=== PATIENT | male | born 1945 | race Caucasian/White ===

== ENCOUNTER → 2018-01-24 | Outpatient (CLI) | payer MEDICARE, BC ==
[~2018-01-24] MED LIST: CARDURA4 MG PO; COMBIVENT INH14.7 GM IH; CRESTOR; FLOVENT0.044 MG/A IH; LIPITOR 40MG TA40 MG PO; LISINOPRIL/HCTZ1 TAB PO; PERCOCET 325 MG1 TA2 PO; PROAIR HFA0.09 MG/AC IH; QVAR REDIHALE10.6 G1 IH; VENTOLIN0.09 MG; VENTOLIN0.09 MG IH; ZESTORETIC 12.51 TA1 PO
== END ==
LOC: ZCOL.LAB 10:34
DX: R91.8 Other nonspecific abnormal finding of lung field (principal)

== ENCOUNTER → 2018-01-30 | Outpatient (CLI) | payer MEDICARE, BC ==
[2018-01-30] VITALS (17 sets, daily range): BP systolic 113–159; BP diastolic 56–95; PULSE 75–113
[~2018-01-30] VITALS: Ht 188 cm; Wt 96.4 kg
== END ==
LOC: COL.RAD 10:09
DX: R91.8 Other nonspecific abnormal finding of lung field (principal); R16.0 Hepatomegaly, not elsewhere classified
CPT/HCPCS: Q9967

== ENCOUNTER → 2018-06-11 | Outpatient (CLI) | payer MEDICARE, BC | LOC: COL.RAD 06:45 | DX: C18.9 Malignant neoplasm of colon, unspecified (principal); C78.00 Secondary malignant neoplasm of unspecified lung; R16.0 Hepatomegaly, not elsewhere classified | CPT/HCPCS: Q9967 ==

== ENCOUNTER → 2018-08-06 | Outpatient (CLI) | payer MEDICARE, BC | LOC: COL.RAD 08:03 | DX: C18.9 Malignant neoplasm of colon, unspecified (principal); C78.02 Secondary malignant neoplasm of left lung; C78.01 Secondary malignant neoplasm of right lung; R16.0 Hepatomegaly, not elsewhere classified; Z95.828 Presence of other vascular implants and grafts | CPT/HCPCS: Q9967 ==

== ENCOUNTER → 2018-10-09 | Outpatient (CLI) | payer MEDICARE, BC | LOC: COL.RAD 07:45 | DX: C18.9 Malignant neoplasm of colon, unspecified (principal); E11.9 Type 2 diabetes mellitus without complications; C78.01 Secondary malignant neoplasm of right lung; C78.02 Secondary malignant neoplasm of left lung; C78.7 Secondary malignant neoplasm of liver and intrahepatic bile duct | CPT/HCPCS: Q9967 ==

== ENCOUNTER → 2018-11-15 | Outpatient (CLI) | payer MEDICARE, BC | LOC: COL.RAD 09:50 | DX: C18.9 Malignant neoplasm of colon, unspecified (principal); E11.9 Type 2 diabetes mellitus without complications; R91.8 Other nonspecific abnormal finding of lung field; R16.0 Hepatomegaly, not elsewhere classified | CPT/HCPCS: Q9967 ==

== ENCOUNTER → 2019-02-11 | Outpatient (CLI) | payer MEDICARE, BC | LOC: COL.RAD 07:23 | DX: Z01.812 Encounter for preprocedural laboratory examination (principal); C19 Malignant neoplasm of rectosigmoid junction; C21.8 Malignant neoplasm of overlapping sites of rectum, anus and anal canal; R91.8 Other nonspecific abnormal finding of lung field; K82.8 Other specified diseases of gallbladder; R16.1 Splenomegaly, not elsewhere classified | CPT/HCPCS: Q9967 ==

== ENCOUNTER → 2019-05-21 | Outpatient (CLI) | payer MEDICARE, BC | LOC: COL.RAD 07:28 | DX: C78.00 Secondary malignant neoplasm of unspecified lung (principal); C18.9 Malignant neoplasm of colon, unspecified | CPT/HCPCS: Q9967 ==

== ENCOUNTER 2019-08-08 00:25 | Emergency (ER) | payer MEDICARE, BC ==
[2019-08-08 00:25] VITALS: TEMP 98.9
[2019-08-08] MEDS ORDERED: OXYCODONE H5 MG/5 ML PO (00:35)
[2019-08-08] MEDS ORDERED: LASIX 40MG TABL40 MG PO (00:35)
[2019-08-08] MEDS ORDERED: KLOR-CON20 MEQ PO (00:36)
[2019-08-08 00:59] LABS: BASO % 0.7 % (0.0-2.0); EOS % 1.3 % (0-4.0); GRAN # 2.2 (1.4-6.5); LYMPH # 0.6 (1.2-3.4); LYMPH % 19.3 % (20.0-51.0); MEAN CELL VOLUME 110 fl (80.0-100.0); MEAN CORPUSCULAR HGB CONC 32 g/dl (33.0-37.0); MEAN PLATELET VOLUME 11.2 fl (7.4-10.4); MONO # 0.1 (0.1-0.6); PLATELET COUNT 64 K/mm3 (130-400); RED BLOOD COUNT 2.33 M/mm3 (4.20-5.60); REDCELL DISTRIBUTION WIDTH-CV 17.7 % (11.5-14.5)
[2019-08-08 01:01] LABS: ALBUMIN 3.2 gm/dL (3.5-5.0); BILIRUBIN,TOTAL 1.8 mg/dL (0.0-1.0); CALCIUM 8.7 mg/dL (8.4-10.2); CREATININE, serum 0.96 (0.66-1.25); TOTAL PROTEIN 5.9 gm/dL (6.4-8.2)
[2019-08-08 01:03] LABS: HEMATOCRIT 25.6 % (42.0-52.0); HEMOGLOBIN 8.3 g/dl (13.5-18.0); MEAN CORPUSCULAR HEMOGLOBIN 36 pg (27.0-31.0)
[2019-08-08] MEDS ORDERED: ANUSOL-HC SUPPO25 MG RC (03:40)
[2019-08-08 04:08] VITALS: BP 152/80; PULSE 90
== END 2019-08-08 04:11 | disposition home or self-care (01) ==
LOC: COL.ER 00:25
PROVIDERS: Emergency Medicine
DX: K59.00 Constipation, unspecified (principal); R60.9 Edema, unspecified; C18.9 Malignant neoplasm of colon, unspecified; C78.00 Secondary malignant neoplasm of unspecified lung; C78.7 Secondary malignant neoplasm of liver and intrahepatic bile duct; I10 Essential (primary) hypertension
CPT/HCPCS: J1940; J7030; Q9967

== ENCOUNTER 2019-09-06 15:39 | Inpatient (IN) | payer MEDICARE, BC ==
[~2019-09-06] VITALS: Ht 188 cm; Wt 103.2 kg
[~2019-09-06 15:39] MED LIST changes: +ANUSOL-HC SUPPO25 MG RC; +KLOR-CON20 MEQ PO; +LASIX 40MG TABL40 MG PO; +OXYCODONE H5 MG/5 ML PO
[2019-09-06 16:51] LABS: MEAN CELL VOLUME 112 fl (80.0-100.0); MEAN CORPUSCULAR HGB CONC 31 g/dl (33.0-37.0); MEAN PLATELET VOLUME 10.5 fl (7.4-10.4); PLATELET COUNT 93 K/mm3 (130-400); REDCELL DISTRIBUTION WIDTH-CV 18.6 % (11.5-14.5)
[2019-09-06 16:56] LABS: INR 1.3 (0.8-3.0)
[2019-09-06 16:59] LABS: HEMOGLOBIN 8.7 g/dl (13.5-18.0); MEAN CORPUSCULAR HEMOGLOBIN 35 pg (27.0-31.0)
[2019-09-06 17:04] LABS: EOS % 0.7 % (0-4.0); GRAN # 4.6 (1.4-6.5); GRAN % 84.4 % (42.2-75.2); LYMPH # 0.7 (1.2-3.4); MONO # 0.1 (0.1-0.6); MONO % 1.5 % (1.7-9.3)
[2019-09-06 17:05] LABS: ALANINE AMINOTRANSFERASE 26 U/L (4-49); ALBUMIN 2.7 gm/dL (3.5-5.0); ALKALINE PHOSPHATASE 126 U/L (50-136); ANION GAP 6 mmol/L (7-16); AST,SGOT 56 U/L (15-37); BLOOD UREA NITROGEN 47 mg/dL (9-20); C-REACTIVE PROTEIN 2.3 mg/dL (0.0-0.9); CALCIUM 8.6 mg/dL (8.4-10.2); CARBON DIOXIDE 28 mmol/L (22-30); CHLORIDE 99 mmol/L (98-107); CREATININE, serum 0.94 (0.66-1.25); GLUCOSE 83 mg/dL (74-106); LIPASE 39 U/L (23-300); POTASSIUM 4.3 mmol/L (3.4-5.0); SODIUM 134 mmol/L (137-145); TOTAL PROTEIN 5.3 gm/dL (6.4-8.2)
[2019-09-06 17:08] LABS: COLLECTION METHOD CLEAN CATCH
[2019-09-06 17:14] LABS: MUCOUS Present /lpf; PH 6 (5-8); SQUAMOUS EPITHELIAL None Seen /hpf; URINE APPEARANCE Clear; URINE BACTERIA None Seen /hpf; URINE BILIRUBIN Negative (NEGATIVE); URINE BLOOD Negative (NEGATIVE); URINE COLOR Yellow; URINE GLUCOSE Negative (NEGATIVE); URINE KETONE Negative (NEGATIVE); URINE LEUKOCYTE ESTERASE Negative (NEGATIVE); URINE NITRATE Negative (NEGATIVE); URINE PROTEIN(semi-quant) Negative (NEGATIVE); URINE RBC 0-2 /hpf; URINE UROBILINOGEN Negative (NEGATIVE)
[2019-09-06 17:14] LABS: TROPONIN-I < 0.012 ng/mL (0.000-0.035)
[2019-09-06 19:09] VITALS: BP 127/58; PULSE 86; TEMP 97.9
[2019-09-06] MEDS ORDERED: K-TAB10 PO (19:16)
[2019-09-06 20:00] VITALS: BP 103/53; PULSE 79; TEMP 97.9
[2019-09-06 22:20] LABS: HEMATOCRIT 25.4 % (42.0-52.0); HEMOGLOBIN 7.8 g/dl (13.5-18.0)
[2019-09-07] VITALS (7 sets, daily range): BP systolic 104–113; BP diastolic 53–62; PULSE 77–89; TEMP 97.9
[2019-09-07 06:23] LABS: BASO % 0.2 % (0.0-2.0); EOS # 0.2 (0.0-0.7); EOS % 3.6 % (0-4.0); GRAN # 4.5 (1.4-6.5); GRAN % 78.4 % (42.2-75.2); LYMPH # 0.9 (1.2-3.4); LYMPH % 16.1 % (20.0-51.0); MEAN CELL VOLUME 113 fl (80.0-100.0); MEAN CORPUSCULAR HGB CONC 31 g/dl (33.0-37.0); MONO # 0.1 (0.1-0.6); PLATELET COUNT 94 K/mm3 (130-400); RED BLOOD COUNT 2.19 M/mm3 (4.20-5.60); REDCELL DISTRIBUTION WIDTH-CV 18.8 % (11.5-14.5)
[2019-09-07 06:26] LABS: HEMATOCRIT 24.7 % (42.0-52.0); HEMOGLOBIN 7.7 g/dl (13.5-18.0); MEAN CORPUSCULAR HEMOGLOBIN 35 pg (27.0-31.0)
[2019-09-07 06:34] LABS: ALBUMIN 2.3 gm/dL (3.5-5.0); BILIRUBIN,TOTAL 0.9 mg/dL (0.0-1.0); CALCIUM 8.2 mg/dL (8.4-10.2); CREATININE, serum 0.7 (0.66-1.25); POTASSIUM 4.2 mmol/L (3.4-5.0); TOTAL PROTEIN 4.8 gm/dL (6.4-8.2)
[2019-09-07 18:19] LABS: HEMATOCRIT 26.2 % (42.0-52.0)
--- NOTE | 2019-09-07 19:05 | NUR ---
Report received from Abiola Campos RN. Pt resting in bed at this time with intermittent moaning noted.
--- NOTE | 2019-09-07 20:00 | NUR ---
Pt assessment completed. Pts lungs, all santos, noted to have insp/ exp wheezing upon assessment. Pt asked to cough multiple times. Upon reassessment pt noted to have clear lung sounds through out. Pt hard of hearing due to "chemo". Pt noted to be moaning in room prior to entrance of this nurse although pt denies any current pain or complaints. Bilateral lower leg compression wraps in place. Able to palpate pedal pulses and place 2 fingers in the top and bottom of the wraps at this time.
--- NOTE | 2019-09-07 20:45 | NUR ---
Report provided to Karlene CHOPRA. Nurse notified that transfer will not occur right away although will call to notify when pt transfer is in progress.
--- NOTE | 2019-09-07 22:46 | NUR ---
Nurse notified of pt transfer to floor. Medical RACKING MACHINE OPERATOR requested and was received for assistance. Pt transfered via medical med to room 313 with personal belongings in tow. Pt mask placed on face prior to movement within the facility halls.
--- NOTE | 2019-09-08 03:05 | NUR ---
Patient to room 313 at about 2300. Noted to have expiratory wheezes to bilateral lungs. Utilizes urinal independently at the bedside. Patient has +3 pitting edema to bilateral extremities. Leg wraps on and was reported to change these weekly. Patient denies any pain. Has slept well so far throughout the night. Will continue to monitor.
[2019-09-08 04:06] VITALS: BP 105/43; PULSE 84; TEMP 98
[2019-09-08 07:42] VITALS: BP 108/62; PULSE 80; TEMP 97.8
[2019-09-08 07:54] LABS: MEAN CELL VOLUME 116 fl (80.0-100.0); MEAN CORPUSCULAR HGB CONC 30 g/dl (33.0-37.0); MEAN PLATELET VOLUME 11.1 fl (7.4-10.4); PLATELET COUNT 65 K/mm3 (130-400); RED BLOOD COUNT 2.22 M/mm3 (4.20-5.60); REDCELL DISTRIBUTION WIDTH-CV 18.9 % (11.5-14.5)
--- NOTE | 2019-09-08 08:00 | NUR ---
SEE MORNING SHIFT ASSESSMENT.
[2019-09-08 08:04] LABS: HEMATOCRIT 25.8 % (42.0-52.0); HEMOGLOBIN 7.7 g/dl (13.5-18.0); MEAN CORPUSCULAR HEMOGLOBIN 35 pg (27.0-31.0)
[2019-09-08 08:07] LABS: CALCIUM 8.2 mg/dL (8.4-10.2); CREATININE, serum 0.63 (0.66-1.25); MAGNESIUM 2.1 mg/dL (1.6-2.3)
[2019-09-08 10:36] LABS: BAND 5 % (0-10); EOSINOPHIL 2 % (0-4); LYMPHOCYTE 14 % (20.0-51.0); NEUTROPHILS 79 % (42.0-75.2)
[2019-09-08 10:37] LABS: PLATELET ESTIMATE DECREASED (NORMAL)
[2019-09-08 10:38] LABS: ANISOCYTOSIS 2+
[2019-09-08] MEDS ORDERED: LASIX 40MG TABL40 MG PO (11:56)
[2019-09-08] MEDS ORDERED: PRIL40 PO (12:01)
[2019-09-08] MEDS ORDERED: CARDURA 2MG2 MG PO (12:02)
--- NOTE | 2019-09-08 15:01 | NUR ---
PATIENT DISCHARGE INSTRUCTIONS REVIEWED WITH PATIENT. QUESTIONS SOUGHT AND ANSWERED. PATIENTS RIGHT FOREARM IV DISCONTINUED PER PENDING DISCHARGED. TIP INTACT. PATIENT TOLERATED WELL. PATIENT PERSONAL BELONGINGS GATHERED. WAITING FOR PATIENTS RIDE TO ARRIVE FOR DISCHARGE. PATIENT DENIES ANY NEEDS AT THIS TIME.
--- NOTE | 2019-09-08 16:17 | NUR ---
PATIENT TAKEN TO PERSONAL VEHICLE VIA WHEELCHAIR BY MEDICAL STAFF. PATIENT DISCHARGED.
== END 2019-09-08 16:18 | disposition home or self-care (01) | DRG 378 ==
LOC: COL.ER 15:39 → IMCU 17:03 → COL.ER 17:03 → MEDICAL 09-07 23:02 → IMCU 09-07 23:02 → MEDICAL 09-07 23:03
PROVIDERS: Emergency Medicine; Physician Assistant; ADMIT Internal Medicine
DX: K92.2 Gastrointestinal hemorrhage, unspecified (principal); E87.2 Acidosis; E87.1 Hypo-osmolality and hyponatremia; C78.00 Secondary malignant neoplasm of unspecified lung; R19.7 Diarrhea, unspecified; I10 Essential (primary) hypertension; D69.6 Thrombocytopenia, unspecified; N40.0 Benign prostatic hyperplasia without lower urinary tract symptoms; J45.909 Unspecified asthma, uncomplicated; R91.8 Other nonspecific abnormal finding of lung field; Z20.828 Contact with and (suspected) exposure to other viral communicable diseases; Z79.891 Long term (current) use of opiate analgesic; Z87.891 Personal history of nicotine dependence
CPT/HCPCS: 99223-AI; 99233-AI; 99239; C9113; J0456; J0696; J7030; J7050

== ENCOUNTER 2019-09-14 12:55 | Outpatient (RCR) | payer MEDICARE, BC ==
[2019-09-14] VITALS (12 sets, daily range): BP systolic 103–124; BP diastolic 46–59; PULSE 83–93; TEMP 98.2–98.5
[~2019-09-14 12:55] MED LIST changes: +CARDURA 2MG2 MG PO; +K-TAB10 PO; +PRIL40 PO
--- NOTE | 2019-09-14 15:25 | NUR ---
BLOOD TRANSFUSION STARTED ON PATIENT ON RAC INFUSING AT 60 MLS/HR. VSS. THIS NURSE AND KEYSHA GONZALES REMAINED AT BEDSIDE FOR 15 MINUTES. NO CONCERN NOTED.
--- NOTE | 2019-09-14 17:09 | NUR ---
Pt laying in bed, warm blankets provided per request. Pt VSS, denies any pain or other complaints. Infusion rate increased to 120. No further needs at this time.
--- NOTE | 2019-09-14 19:15 | NUR ---
Pt stil receiving blood transfusion, VSS, BP a little soft. Report given to KEYSHA Holliday, she is aware. pt denied any needs at bedside report. No further needs at this time.
--- NOTE | 2019-09-14 21:42 | NUR ---
BLOOD COMPLETED AT 2138. PATIENT HAD NO COMPLICATIONS WITH THE INFUSION. NO SHORTNESS OF BREATH OR ANY ISSUES NOTED. WHEELED OUT BY FIELD AGRONOMIST.
== END 2019-09-19 15:27 | disposition home or self-care (01) ==
LOC: EUO 12:55
DX: C19 Malignant neoplasm of rectosigmoid junction (principal); C21.8 Malignant neoplasm of overlapping sites of rectum, anus and anal canal
CPT/HCPCS: P9040

== ENCOUNTER → 2019-10-29 | Outpatient (CLI) | payer MEDICARE, BC | LOC: COL.RAD 09:41 | DX: C19 Malignant neoplasm of rectosigmoid junction (principal); C78.7 Secondary malignant neoplasm of liver and intrahepatic bile duct; C78.01 Secondary malignant neoplasm of right lung; C78.02 Secondary malignant neoplasm of left lung; R18.0 Malignant ascites; Z96.89 Presence of other specified functional implants | CPT/HCPCS: Q9967 ==